=== PATIENT | male | born 1980 | race Caucasian/White ===

== ENCOUNTER 2023-09-22 18:22 | Inpatient (IN) | payer OTHER ==
[~2023-09-22] VITALS: Ht 172.7 cm; Wt 70.3 kg
[2023-09-22 19:29] LABS: BASOPHILS % 0.2 % (0.0-1.0); EOSINOPHILS # (AUTO) 0.1 (0.0-0.4); EOSINOPHILS % 0.7 % (0.0-6.0); HEMATOCRIT 37.1 % (38.2-49.6); HEMOGLOBIN 12.7 g/dL (14.0-18.0); LYMPHOCYTES # (AUTO) 2.3 (1.0-3.2); LYMPHOCYTES % 17.4 % (18.0-39.1); MEAN CORPUSCULAR HEMOGLOBIN 31.3 pg (28-32); MEAN CORPUSCULAR HGB CONC 34.2 g/dL (31-35); MEAN CORPUSCULAR VOLUME 91.4 fL (81-99); MONOCYTES # (AUTO) 0.9 (0.2-0.8); MONOCYTES % 6.8 % (4.4-11.3); NEUTROPHILS % 74.5 % (38.7-80.0); PLATELET COUNT 228 x10e3/uL (140-360); RED BLOOD COUNT 4.06 x10e6/uL (4.3-5.7); RED CELL DISTRIBUTION WIDTH 12.2 % (11.7-14.4); WHITE BLOOD COUNT 13.46 x10e3/uL (4.8-10.8)
[2023-09-22 19:47] LABS: ALBUMIN 3.6 g/dL (3.5-5.0); ANION GAP 13.4 mmol/L (8-16); BILIRUBIN,TOTAL 0.4 mg/dL (0.2-1.2); CALCIUM 9.1 mg/dL (8.4-10.2); CREATININE, SERUM 1.1 mg/dL (0.72-1.25); POTASSIUM 4.4 mmol/L (3.5-5.1); TOTAL PROTEIN 7.2 g/dL (6.5-8.1)
[2023-09-22] MEDS ORDERED: IOPAMIDOL 370 MG/ML 100 ML INFUS..BTL INJ ONE (20:13)
[2023-09-22] MEDS: ACETAMINOPHEN 325 MG TAB PO ONE (20:21)
[2023-09-22] MEDS: SODIUM CHLORIDE 0.9% 1000ML 1,000 ML IV ONE (20:21)
[2023-09-22] MEDS: Vancomycin IV 1 GM in SODIUM CHLORIDE 0.9% 250ML 250 ML IV SCH (21:12)
[2023-09-22 22:32] VITALS: PULSE 90; RESP 17; TEMP 97.7
[2023-09-22 23:13] VITALS: BP 118/60; PULSE 76; RESP 20; TEMP 98.7; O2SAT 96
[2023-09-22 23:30] VITALS: BP 104/69; PULSE 76; RESP 20; TEMP 98.7; O2SAT 97
[2023-09-22] MEDS: SODIUM CHLORIDE 0.9% 1000ML 1,000 ML IV SCH (23:54)
[2023-09-23] VITALS (8 sets, daily range): BP systolic 109–140; BP diastolic 67–84; PULSE 77–92; RESP 18–20; TEMP 97.6–101.4; O2SAT 98–100
[2023-09-23 05:46] LABS: BASOPHILS # (AUTO) 0.1 (0.0-0.1); BASOPHILS % 0.5 % (0.0-1.0); EOSINOPHILS # (AUTO) 0.2 (0.0-0.4); EOSINOPHILS % 1.9 % (0.0-6.0); HEMATOCRIT 33.5 % (38.2-49.6); LYMPHOCYTES # (AUTO) 2.6 (1.0-3.2); LYMPHOCYTES % 25.7 % (18.0-39.1); MEAN CORPUSCULAR HEMOGLOBIN 30.6 pg (28-32); MEAN CORPUSCULAR HGB CONC 32.8 g/dL (31-35); MEAN CORPUSCULAR VOLUME 93.1 fL (81-99); MONOCYTES # (AUTO) 0.9 (0.2-0.8); MONOCYTES % 8.6 % (4.4-11.3); NEUTROPHILS # (AUTO) 6.5 (2.1-6.9); NEUTROPHILS % 62.7 % (38.7-80.0); PLATELET COUNT 204 x10e3/uL (140-360); RED CELL DISTRIBUTION WIDTH 12.2 % (11.7-14.4); WHITE BLOOD COUNT 10.29 x10e3/uL (4.8-10.8)
[2023-09-23 06:24] LABS: ALBUMIN 2.7 g/dL (3.5-5.0); ALBUMIN/GLOBULIN RATIO 0.9 (0.8-2.0); ANION GAP 8.8 mmol/L (8-16); BILIRUBIN,TOTAL 0.2 mg/dL (0.2-1.2); CREATININE, SERUM 0.83 mg/dL (0.72-1.25); POTASSIUM 3.8 mmol/L (3.5-5.1); TOTAL PROTEIN 5.6 g/dL (6.5-8.1)
[2023-09-23] MEDS: ACETAMINOPHEN 325 MG TAB PO PRN (08:52)
[2023-09-23] MEDS: DIPHENHYDRAMINE HCL 25 MG CAP PO PRN (11:35)
[2023-09-23] MEDS: ONDANSETRON HCL INJ 2MG/ML 2ML 2 MG/ML VIAL IV PRN (17:47)
[2023-09-23] MEDS: Morphine 4mg INJECTION 4 MG/ML INJ IV PRN (17:47)
[2023-09-24] VITALS (8 sets, daily range): BP systolic 113–151; BP diastolic 64–98; PULSE 71–87; RESP 18–21; TEMP 98.4–100.1; O2SAT 98–100
[2023-09-24 06:01] LABS: BASOPHILS % 0.4 % (0.0-1.0); EOSINOPHILS # (AUTO) 0.2 (0.0-0.4); EOSINOPHILS % 2.2 % (0.0-6.0); HEMATOCRIT 36.8 % (38.2-49.6); HEMOGLOBIN 12.2 g/dL (14.0-18.0); LYMPHOCYTES # (AUTO) 2.6 (1.0-3.2); LYMPHOCYTES % 25.5 % (18.0-39.1); MEAN CORPUSCULAR HEMOGLOBIN 30.8 pg (28-32); MEAN CORPUSCULAR HGB CONC 33.2 g/dL (31-35); MEAN CORPUSCULAR VOLUME 92.9 fL (81-99); MONOCYTES # (AUTO) 0.8 (0.2-0.8); MONOCYTES % 8.2 % (4.4-11.3); NEUTROPHILS # (AUTO) 6.4 (2.1-6.9); NEUTROPHILS % 63.3 % (38.7-80.0); PLATELET COUNT 240 x10e3/uL (140-360); RED BLOOD COUNT 3.96 x10e6/uL (4.3-5.7); RED CELL DISTRIBUTION WIDTH 12.3 % (11.7-14.4); WHITE BLOOD COUNT 10.13 x10e3/uL (4.8-10.8)
[2023-09-24 06:22] LABS: ALBUMIN 2.9 g/dL (3.5-5.0); ALBUMIN/GLOBULIN RATIO 0.8 (0.8-2.0); ANION GAP 14.5 mmol/L (8-16); BILIRUBIN,TOTAL 0.3 mg/dL (0.2-1.2); CALCIUM 8.7 mg/dL (8.4-10.2); CREATININE, SERUM 0.95 mg/dL (0.72-1.25); POTASSIUM 4.5 mmol/L (3.5-5.1); TOTAL PROTEIN 6.5 g/dL (6.5-8.1)
[2023-09-24 06:49] LABS: FERRITIN 158.34 ng/mL (21.81-274.66)
[2023-09-24] MEDS: VANCOMYCIN 1.25GM/250ML PREMIX 250 ML IV SCH (21:32)
[2023-09-25] VITALS (9 sets, daily range): BP systolic 116–124; BP diastolic 72–86; PULSE 59–72; RESP 18–20; TEMP 97.6–98.8; O2SAT 96–100
[2023-09-25 05:50] LABS: BASOPHILS % 0.4 % (0.0-1.0); EOSINOPHILS # (AUTO) 0.3 (0.0-0.4); EOSINOPHILS % 3.2 % (0.0-6.0); HEMATOCRIT 37.3 % (38.2-49.6); HEMOGLOBIN 12.2 g/dL (14.0-18.0); LYMPHOCYTES # (AUTO) 2.6 (1.0-3.2); LYMPHOCYTES % 28.8 % (18.0-39.1); MEAN CORPUSCULAR HEMOGLOBIN 30.7 pg (28-32); MEAN CORPUSCULAR HGB CONC 32.7 g/dL (31-35); MEAN CORPUSCULAR VOLUME 93.7 fL (81-99); MONOCYTES # (AUTO) 0.7 (0.2-0.8); MONOCYTES % 8.1 % (4.4-11.3); NEUTROPHILS # (AUTO) 5.4 (2.1-6.9); NEUTROPHILS % 59.3 % (38.7-80.0); PLATELET COUNT 265 x10e3/uL (140-360); RED BLOOD COUNT 3.98 x10e6/uL (4.3-5.7); RED CELL DISTRIBUTION WIDTH 11.9 % (11.7-14.4); WHITE BLOOD COUNT 9.14 x10e3/uL (4.8-10.8)
[2023-09-25 06:17] LABS: ANION GAP 8.1 mmol/L (8-16); CALCIUM 9.5 mg/dL (8.4-10.2); CREATININE, SERUM 0.85 mg/dL (0.72-1.25); POTASSIUM 4.1 mmol/L (3.5-5.1)
[2023-09-26] VITALS (7 sets, daily range): BP systolic 114–129; BP diastolic 77–84; PULSE 62–89; RESP 17–18; TEMP 97.4–98.4; O2SAT 98–100
[2023-09-26 08:27] LABS: BASOPHILS # (AUTO) 0.1 (0.0-0.1); BASOPHILS % 0.8 % (0.0-1.0); EOSINOPHILS # (AUTO) 0.3 (0.0-0.4); EOSINOPHILS % 4.5 % (0.0-6.0); HEMOGLOBIN 12.8 g/dL (14.0-18.0); LYMPHOCYTES # (AUTO) 2.7 (1.0-3.2); MEAN CORPUSCULAR HEMOGLOBIN 30.8 pg (28-32); MEAN CORPUSCULAR HGB CONC 32.8 g/dL (31-35); MONOCYTES # (AUTO) 0.5 (0.2-0.8); MONOCYTES % 6.9 % (4.4-11.3); NEUTROPHILS # (AUTO) 3.1 (2.1-6.9); NEUTROPHILS % 47.3 % (38.7-80.0); PLATELET COUNT 277 x10e3/uL (140-360); RED BLOOD COUNT 4.15 x10e6/uL (4.3-5.7); RED CELL DISTRIBUTION WIDTH 12.1 % (11.7-14.4); WHITE BLOOD COUNT 6.62 x10e3/uL (4.8-10.8)
[2023-09-26 09:06] LABS: ANION GAP 12.4 mmol/L (8-16); CALCIUM 8.8 mg/dL (8.4-10.2); CREATININE, SERUM 0.91 mg/dL (0.72-1.25); POTASSIUM 4.4 mmol/L (3.5-5.1)
[2023-09-26] MEDS: Vancomycin IV 1 GM in SODIUM CHLORIDE 0.9% 250ML 250 ML IV SCH (17:14)
[2023-09-27] VITALS (7 sets, daily range): BP systolic 111–138; BP diastolic 68–88; PULSE 63–71; RESP 17–20; TEMP 97.7–98.7; O2SAT 99–100
[2023-09-27 06:00] LABS: BASOPHILS # (AUTO) 0.1 (0.0-0.1); BASOPHILS % 0.6 % (0.0-1.0); EOSINOPHILS # (AUTO) 0.3 (0.0-0.4); EOSINOPHILS % 3.9 % (0.0-6.0); HEMATOCRIT 38.1 % (38.2-49.6); HEMOGLOBIN 12.4 g/dL (14.0-18.0); LYMPHOCYTES # (AUTO) 3.2 (1.0-3.2); LYMPHOCYTES % 40.9 % (18.0-39.1); MEAN CORPUSCULAR HEMOGLOBIN 30.2 pg (28-32); MEAN CORPUSCULAR HGB CONC 32.5 g/dL (31-35); MEAN CORPUSCULAR VOLUME 92.9 fL (81-99); MONOCYTES # (AUTO) 0.7 (0.2-0.8); MONOCYTES % 9.3 % (4.4-11.3); NEUTROPHILS # (AUTO) 3.5 (2.1-6.9); NEUTROPHILS % 44.8 % (38.7-80.0); PLATELET COUNT 313 x10e3/uL (140-360); RED CELL DISTRIBUTION WIDTH 11.7 % (11.7-14.4); WHITE BLOOD COUNT 7.78 x10e3/uL (4.8-10.8)
[2023-09-27 06:39] LABS: ALBUMIN 2.9 g/dL (3.5-5.0); ALBUMIN/GLOBULIN RATIO 0.8 (0.8-2.0); ANION GAP 10.8 mmol/L (8-16); BILIRUBIN,TOTAL 0.2 mg/dL (0.2-1.2); CALCIUM 8.8 mg/dL (8.4-10.2); CREATININE, SERUM 0.88 mg/dL (0.72-1.25); POTASSIUM 3.8 mmol/L (3.5-5.1); TOTAL PROTEIN 6.6 g/dL (6.5-8.1)
[2023-09-28] VITALS: BP 120/85; PULSE 70; RESP 18; TEMP 98.4; O2SAT 96
[2023-09-28 06:03] LABS: BASOPHILS % 0.6 % (0.0-1.0); EOSINOPHILS # (AUTO) 0.3 (0.0-0.4); EOSINOPHILS % 3.8 % (0.0-6.0); HEMATOCRIT 37.4 % (38.2-49.6); HEMOGLOBIN 12.4 g/dL (14.0-18.0); LYMPHOCYTES % 45.3 % (18.0-39.1); MEAN CORPUSCULAR HGB CONC 33.2 g/dL (31-35); MEAN CORPUSCULAR VOLUME 93.5 fL (81-99); MONOCYTES # (AUTO) 0.6 (0.2-0.8); MONOCYTES % 8.6 % (4.4-11.3); NEUTROPHILS # (AUTO) 2.7 (2.1-6.9); NEUTROPHILS % 41.1 % (38.7-80.0); PLATELET COUNT 330 x10e3/uL (140-360); RED CELL DISTRIBUTION WIDTH 11.9 % (11.7-14.4); WHITE BLOOD COUNT 6.54 x10e3/uL (4.8-10.8)
[2023-09-28 06:18] LABS: INR 0.95; PROTHROMBIN TIME 13.4 seconds (11.9-14.5)
[2023-09-28 06:19] LABS: PARTIAL THROMBOPLASTIN TIME 33.9 seconds (23.8-35.5)
[2023-09-28 06:33] LABS: ANION GAP 10.4 mmol/L (8-16); CALCIUM 8.9 mg/dL (8.4-10.2); CREATININE, SERUM 0.88 mg/dL (0.72-1.25); POTASSIUM 4.4 mmol/L (3.5-5.1)
[2023-09-28] MEDS ORDERED: Vancomycin IV 1 GM VIAL ONE (08:35)
[2023-09-28] MEDS ORDERED: SODIUM CHLORIDE 0.9% 250ML 250 ML ONE (08:35)
[2023-09-28 08:40] VITALS: BP 128/82; PULSE 61; RESP 18; TEMP 98.4; O2SAT 99
[2023-09-28] MEDS ORDERED: MUPIROCIN 2% OINT 22 GM TUBE ONE (09:03)
[2023-09-28 09:45] VITALS: BP 130/81; PULSE 70; RESP 12; TEMP 97.3; O2SAT 98
[2023-09-28 11:57] VITALS: BP 122/79; PULSE 61; RESP 18; TEMP 98.3; O2SAT 99
[2023-09-28] MEDS ORDERED: ONDANSETRON HCL INJ 2MG/ML 2ML 2 MG/ML VIAL ONE (12:12)
[2023-09-28] MEDS ORDERED: PROPOFOL IV EMULSION 10 MG/ML 20 ML VIAL ONE (12:12)
[2023-09-28] MEDS ORDERED: SEVOFLURANE INHAL SOLN 250 ML PEN BTL ONE (12:12)
[2023-09-28] MEDS ORDERED: DEXMEDETOMIDINE HCL 200 MCG/2 ML VIAL ONE (12:12)
[2023-09-28] MEDS ORDERED: LIDOCAINE HCL 2% LOCAL INJ 5 ML SDV VIAL INJ ONE (12:12)
[2023-09-28] MEDS ORDERED: DEXAMETHASONE SOD PHOS INJ 4 MG/ML SDV ONE (12:12)
[2023-09-28] MEDS ORDERED: FENTANYL CITRATE/PF 100MCG/2 ML INJ ONE (12:19)
[2023-09-28 16:34] VITALS: BP 111/56; PULSE 74; RESP 18; TEMP 99.1; O2SAT 100
[2023-09-28 20:00] VITALS: BP_SYST 156; BP_DIAS 104; BP_DIAS 89; PULSE 112; RESP 18; TEMP 98.4; O2SAT 99
[2023-09-28] MEDS: LABETALOL HCL 5 MG/ML 20ML VIAL IV PRN (21:30)
[2023-09-29 00:58] VITALS: BP 160/98; PULSE 107; RESP 18; TEMP 99.4; O2SAT 97
[2023-09-29 04:00] VITALS: BP 144/86; PULSE 87; RESP 17; TEMP 99; O2SAT 99
[2023-09-29 07:07] LABS: BASOPHILS % 0.3 % (0.0-1.0); EOSINOPHILS # (AUTO) 0.1 (0.0-0.4); EOSINOPHILS % 0.6 % (0.0-6.0); HEMATOCRIT 37.1 % (38.2-49.6); HEMOGLOBIN 12.4 g/dL (14.0-18.0); LYMPHOCYTES # (AUTO) 3.5 (1.0-3.2); LYMPHOCYTES % 27.9 % (18.0-39.1); MEAN CORPUSCULAR HEMOGLOBIN 30.6 pg (28-32); MEAN CORPUSCULAR HGB CONC 33.4 g/dL (31-35); MEAN CORPUSCULAR VOLUME 91.6 fL (81-99); MONOCYTES # (AUTO) 0.8 (0.2-0.8); MONOCYTES % 6.1 % (4.4-11.3); NEUTROPHILS # (AUTO) 8.1 (2.1-6.9); NEUTROPHILS % 64.6 % (38.7-80.0); PLATELET COUNT 378 x10e3/uL (140-360); RED BLOOD COUNT 4.05 x10e6/uL (4.3-5.7); RED CELL DISTRIBUTION WIDTH 11.8 % (11.7-14.4); WHITE BLOOD COUNT 12.55 x10e3/uL (4.8-10.8)
[2023-09-29 07:47] LABS: ANION GAP 15.5 mmol/L (8-16); CALCIUM 8.8 mg/dL (8.4-10.2); CREATININE, SERUM 0.92 mg/dL (0.72-1.25); POTASSIUM 3.5 mmol/L (3.5-5.1)
[2023-09-29 08:23] VITALS: BP 162/101; PULSE 83; RESP 17; TEMP 98; O2SAT 100
[2023-09-29 09:15] VITALS: BP 162/101; PULSE 83; RESP 17; TEMP 98; O2SAT 100
[2023-09-29 12:28] VITALS: BP 156/92; PULSE 79; RESP 17; TEMP 98; O2SAT 98
[2023-09-29] MEDS ORDERED: KETOROLAC TROME10 MG PO (14:01)
[2023-09-29] MEDS ORDERED: DOXYCYCLINE HY100 MG PO (14:01)
[2023-09-29 16:16] VITALS: BP 154/91; PULSE 81; RESP 15; TEMP 97.5; O2SAT 100
== END 2023-09-29 17:49 | disposition home or self-care (01) | DRG 603 ==
LOC: ER 18:29 → ERHOLD 22:09 → MED/SURG3 23:17
PROVIDERS: ADMIT Internal Medicine; ATTEND Internal Medicine
PROC: 0J9N0ZZ Drainage of Right Lower Leg Subcutaneous Tissue and Fascia, Open Approach (ICD-10-PCS; principal; 2023-09-28 08:39)
DX: L03.115 Cellulitis of right lower limb (principal); Z59.01 Sheltered homelessness; Z16.24 Resistance to multiple antibiotics; B95.62 Methicillin resistant Staphylococcus aureus infection as the cause of diseases classified elsewhere; D64.9 Anemia, unspecified; Z11.52 Encounter for screening for COVID-19
CPT/HCPCS: 36415; 80048; 80053; 80202; 82607; 82728; 83540; 83605; 83735; 84466; 85025; 85610; 85730; 87040; 87071; 87075; 87186; 87205; 93005; 99252; 99284; J1100; J2001; J2270; J2405; J2543; J7030; J7050; Q9967; U0002